=== PATIENT | female | born 2000 | race Caucasian/White ===

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

== ENCOUNTER 2020-01-14 17:21 | Emergency (ER) | payer SELFPAY ==
[2020-01-14] MEDS ORDERED: Zofran 4 MG/2 ML VIAL IV ONE (17:58)
[2020-01-14] MEDS ORDERED: Sodium Chloride 0.9% 1000 ML 1,000 ML IV STA (17:58)
[2020-01-14] MEDS ORDERED: SUBLIMAZE 100 MCG/2 ML IV ONE (17:58)
--- NOTE | 2020-01-14 18:03 | ERPHSYRPT ---
- History of Present Illness Historian: patient Exam Limitations: no limitations Patient Subjective Stated Complaint: abd pain Triage Nursing Assessment: pt to ED c/o bilat flank pain and lower abd pain bilat. pt states this has been "going on for a while now. I haven't ate in weeks." Pt states she did hold down small helping of beans todaty, but has been very nauseous. LMP 2 weeks ago and currenlty on period again. reports being sexually active but uses condoms. also reports hx frequent UTIs. Timing/Duration: day(s) (4-5 days) Quality: cramping Abdominal Pain Onset Location: RLQ, LLQ, suprapubic Pain Radiation: no radiation Severity of Pain-Max: moderate Severity of Pain-Current: moderate Modifying Factors: Improves With: nothing Associated Symptoms: fever/chills, fatigue, loss of appetite, nausea, vomiting, weakness Previous symptoms: same symptoms as today Hx Tetanus, Diphtheria Vaccination/Date Given: Yes Hx Influenza Vaccination/Date Given: Yes Hx Pneumococcal Vaccination/Date Given: No Immunizations Up to Date: Yes <JARVIS CRAIG - Last Filed: 01/14/20 18:40> <INDY DYE - Last Filed: 01/14/20 21:07> - History of Present Illness Time Seen by Provider: 01/14/20 17:59 Physician History: c/o lower abdominal pain for 5 days pt to ED c/o bilat flank pain and lower abd pain bilateral. pt states this has been "going on for a while now. I haven't ate in weeks." Pt states she did hold down small amount of food today, but has been very nauseous. LMP 2 weeks ago and currenlty on period again. reports being sexually active but uses condoms. also reports hx frequent UTIs. (JARVIS CRAIG) Allergies/Adverse Reactions: No Known Drug Allergies Allergy (Verified 01/14/20 17:45) Travel Risk - International Travel Have you traveled outside of the country in past 3 weeks: No - Coronavirus Screening Are you exhibiting any of the following symptoms?: No Close contact with a COVID-19 positive Pt in past 14-21 Days: No <JARVIS CRAIG - Last Filed: 01/14/20 18:40> - Review of Systems Constitutional: Fever, Chills, Malaise, Weakness Eyes: No Symptoms Ears, Nose, & Throat: No Symptoms Respiratory: No Cough, No Dyspnea Cardiac: No Chest Pain, No Edema, No Syncope Abdominal/Gastrointestinal: Abdominal Pain, Nausea, Vomiting, No Diarrhea, No Hematemesis, No Hematochezia Genitourinary Symptoms: Dysuria, Frequency, Urgency, Flank Pain, Vaginal Bleeding, No Hematuria, No Hesitancy, No Urinary Retention, No , No Vaginal Discharge Musculoskeletal: No Back Pain, No Neck Pain Skin: No Rash Neurological: No Dizziness, No Focal Weakness, No Sensory Changes Psychological: No Symptoms Endocrine: No Symptoms All Other Systems: Reviewed and Negative <KIARA,JARVIS - Last Filed: 01/14/20 18:40> - Past Medical History Pertinent Past Medical History: Yes Neurological History: No Pertinent History ENT History: No Pertinent History Cardiac History: No Pertinent History Respiratory History: No Pertinent History Endocrine Medical History: No Pertinent History Musculoskeletal History: No Pertinent History GI Medical History: No Pertinent History History: Other Psycho-Social History: No Pertinent History Female Reproductive Disorders: No Pertinent History Other Medical History: frequent pharyngitis. frequent UTI's - Past Surgical History Past Surgical History: No Neuro Surgical History: No Pertinent History Cardiac: No Pertinent History Respiratory: No Pertinent History Gastrointestinal: No Pertinent History Genitourinary: No Pertinent History Musculoskeletal: No Pertinent History Female Surgical History: No Pertinent History - Social History Smoking Status: Never smoker Exposure to second hand smoke: Yes Drug Use: none Patient Lives Alone: No - Female History Hx Last Menstrual Period: 12/27/19 Hx Now: No <KIARA,JARVIS - Last Filed: 01/14/20 18:40> - Physical Exam General Appearance: mild distress, alert Eye Exam: PERRL/EOMI, eyes nml inspection Ears, Nose, Throat Exam: normal ENT inspection, pharynx normal, moist mucous membranes Neck Exam: normal inspection, non-tender, supple, full range of motion Respiratory Exam: normal breath sounds, lungs clear, No respiratory distress Cardiovascular Exam: regular rate/rhythm, normal heart sounds Gastrointestinal/Abdomen Exam: soft, tenderness (LLQ), No mass Back Exam: normal inspection, normal range of motion, No CVA tenderness, No vertebral tenderness Extremity Exam: normal inspection, normal range of motion, pelvis stable Neurologic Exam: alert, oriented x 3, cooperative, normal mood/affect, nml cerebellar function, sensation nml, No motor deficits Skin Exam: normal color, warm, dry SpO2: 98 <JARVIS CRAIG - Last Filed: 01/14/20 18:40> - Physical Exam Gastrointestinal/Abdomen Exam: other (re-exam abd nontender without rebound or peritoneal signs ), No distention, No guarding, No pulsatile mass, No rebound, No hernia <INDY DYE - Last Filed: 01/14/20 21:07> - Nursing Vital Signs Nursing Vital Signs: Initial Vital Signs Temperature 99.9 F 01/14/20 17:34 Pulse Rate 98 H 01/14/20 17:34 Respiratory Rate 18 01/14/20 17:34 Blood Pressure 132/89 01/14/20 17:34 O2 Sat by Pulse Oximetry 98 01/14/20 17:34 Pain Scale Pain Intensity 5 - Course Nursing assessment & vital signs reviewed: Yes <JARVIS CRAIG - Last Filed: 01/14/20 18:40> - Course Nursing assessment & vital signs reviewed: Yes <HARDIKINDY KARINA - Last Filed: 01/14/20 21:07> Ordered Tests: Active Orders 24 hr Category Date Time Status PO Fluid Challenge STAT Care 01/14/20 19:13 Active AMYLASE Stat Lab 01/14/20 18:27 Completed CBC W DIFF Stat Lab 01/14/20 18:27 Completed CMP Stat Lab 01/14/20 18:27 Completed CULTURE,URINE Stat Lab 01/14/20 18:30 Received HCG QUALITATIVE,SERUM Stat Lab 01/14/20 18:27 Completed LIPASE Stat Lab 01/14/20 18:27 Completed Lactic Acid Stat Lab 01/14/20 17:58 Completed UA W/RFX UR CULTURE Stat Lab 01/14/20 18:30 Completed Medication Summary Discontinued Medications Generic Name Dose Route Start Last Admin Trade Name Charissa PRN Reason Stop Dose Admin Fentanyl Citrate 50 mcg 01/14/20 17:58 01/14/20 18:51 Sublimaze 100 Mcg/2 Ml IV 01/14/20 17:59 50 mcg STAT ONE Administration Fentanyl Citrate Confirm 01/14/20 18:50 Sublimaze 100 Mcg/2 Ml Administered 01/14/20 18:51 Dose 100 mcg .ROUTE .STK-MED ONE Sodium Chloride 1,000 mls @ 999 mls/hr 01/14/20 17:58 01/14/20 18:51 Sodium Chloride 0.9% 1000 Ml IV 01/14/20 18:58 999 mls/hr .Q1H1M STA Administration Sodium Chloride Confirm 01/14/20 18:50 Sodium Chloride 0.9% 1000 Ml Administered 01/14/20 18:51 Dose 1,000 mls @ ud .ROUTE .STK-MED ONE Ceftriaxone Sodium/Dextrose 1 g in 50 mls @ 100 mls/hr 01/14/20 19:25 01/14/20 20:03 Rocephin 1 Gm-D5w 50 Ml Bag IV 01/14/20 19:54 100 ml/hr STAT STA 100 mls/hr Administration Ceftriaxone Sodium/Dextrose Confirm 01/14/20 19:56 Rocephin 1 Gm-D5w 50 Ml Bag Administered 01/14/20 19:57 Dose 1 g in 50 mls @ ud IV .STK-MED ONE Ondansetron HCl 4 mg 01/14/20 17:58 01/14/20 18:51 Zofran 4 Mg/2 Ml Vial IV 01/14/20 17:59 4 mg STAT ONE Administration Ondansetron HCl Confirm 01/14/20 18:50 Zofran 4 Mg/2 Ml Vial Administered 01/14/20 18:51 Dose 4 mg .ROUTE .STK-MED ONE Lab/Rad Data: Laboratory Result Diagrams 01/14/20 18:27 01/14/20 18:27 Laboratory Results 01/14/20 01/14/20 01/14/20 Range/Units 18:30 18:27 18:27 WBC (4.0-10.5) K/mm3 RBC (4.1-5.4) M/mm3 Hgb (12.0-16.0) gm/dl Hct (35-47) % MCV (78-100) fl MCH (26-32) pg MCHC (32-36) g/dl RDW (11.5-14.0) % Plt Count (150-450) K/mm3 MPV (7.5-11.0) fl Gran % (36.0-66.0) % Eos # (Auto) (0-0.5) Absolute Lymphs (auto) (1.0-4.6) Absolute Monos (auto) (0.0-1.3) Lymphocytes % (24.0-44.0) % Monocytes % (0.0-12.0) % Eosinophils % (0.00-5.0) % Basophils % (0.0-0.4) % Absolute Granulocytes (1.4-6.9) Basophils # (0-0.4) Sodium 127 L (137-145) mmol/L Potassium 3.7 (3.5-5.1) mmol/L Chloride 88 L (98-107) mmol/L Carbon Dioxide 26 (22-30) mmol/L Anion Gap 17.5 H (5-15) MEQ/L BUN 19 H (7-17) mg/dL Creatinine 0.95 (0.52-1.04) mg/dL Estimated GFR > 60.0 ML/MIN Glucose 119 H (74-106) mg/dL Lactic Acid (0.4-2.0) Calcium 9.3 (8.4-10.2) mg/dL Total Bilirubin 1.50 H (0.2-1.3) mg/dL AST 24 (14-36) U/L ALT 16 (0-35) U/L Alkaline Phosphatase 88 (38-126) U/L Serum Total Protein 8.5 H (6.3-8.2) g/dL Albumin 4.5 (3.5-5.0) g/dL Amylase 66 (30-110) U/L Lipase 420 H (23-300) U/L Serum , Qual NEGATIVE (Negative) Urine Color YELLOW (YELLOW) Urine Appearance SLIGHTLY CLOUDY (CLEAR) Urine pH 6.0 (5-6) Ur Specific [place] 1.011 (1.005-1.025) Urine Protein 100 (Negative) Urine Ketones SMALL (NEGATIVE) Urine Blood MODERATE (0-5) Jerrell/ul Urine Nitrite NEGATIVE (NEGATIVE) Urine Bilirubin NEGATIVE (NEGATIVE) Urine Urobilinogen 4 (0-1) mg/dL Ur Leukocyte Esterase SMALL (NEGATIVE) Urine WBC (Auto) 11-15 (0-5) /HPF Urine RBC (Auto) 0-2 (0-2) /HPF U Epithel Cells (Auto) NONE (FEW) /HPF Urine Bacteria (Auto) RARE (NEGATIVE) /HPF Amorphous Crystals FEW (NEGATIVE) /HPF Urine Mucus (Auto) SLIGHT (NEGATIVE) /HPF Urine Culture Reflexed YES (NO) Urine Glucose NEGATIVE (NEGATIVE) mg/dL 01/14/20 01/14/20 Range/Units 18:27 17:58 WBC 15.2 H (4.0-10.5) K/mm3 RBC 4.39 (4.1-5.4) M/mm3 Hgb 13.1 (12.0-16.0) gm/dl Hct 38.1 (35-47) % MCV 86.8 (78-100) fl MCH 29.8 (26-32) pg MCHC 34.4 (32-36) g/dl RDW 13.4 (11.5-14.0) % Plt Count 183 (150-450) K/mm3 MPV 10.6 (7.5-11.0) fl Gran % 74.9 H (36.0-66.0) % Eos # (Auto) 0.01 (0-0.5) Absolute Lymphs (auto) 1.28 (1.0-4.6) Absolute Monos (auto) 2.50 H (0.0-1.3) Lymphocytes % 8.4 L (24.0-44.0) % Monocytes % 16.5 H (0.0-12.0) % Eosinophils % 0.1 (0.00-5.0) % Basophils % 0.1 (0.0-0.4) % Absolute Granulocytes 11.37 H (1.4-6.9) Basophils # 0.02 (0-0.4) Sodium (137-145) mmol/L Potassium (3.5-5.1) mmol/L Chloride (98-107) mmol/L Carbon Dioxide (22-30) mmol/L Anion Gap (5-15) MEQ/L BUN (7-17) mg/dL Creatinine (0.52-1.04) mg/dL Estimated GFR ML/MIN Glucose (74-106) mg/dL Lactic Acid 1.5 (0.4-2.0) Calcium (8.4-10.2) mg/dL Total Bilirubin (0.2-1.3) mg/dL AST (14-36) U/L ALT (0-35) U/L Alkaline Phosphatase (38-126) U/L Serum Total Protein (6.3-8.2) g/dL Albumin (3.5-5.0) g/dL Amylase (30-110) U/L Lipase (23-300) U/L Serum , Qual (Negative) Urine Color (YELLOW) Urine Appearance (CLEAR) Urine pH (5-6) Ur Specific [place] (1.005-1.025) Urine Protein (Negative) Urine Ketones (NEGATIVE) Urine Blood (0-5) Jerrell/ul Urine Nitrite (NEGATIVE) Urine Bilirubin (NEGATIVE) Urine Urobilinogen (0-1) mg/dL Ur Leukocyte Esterase (NEGATIVE) Urine WBC (Auto) (0-5) /HPF Urine RBC (Auto) (0-2) /HPF U Epithel Cells (Auto) (FEW) /HPF Urine Bacteria (Auto) (NEGATIVE) /HPF Amorphous Crystals (NEGATIVE) /HPF Urine Mucus (Auto) (NEGATIVE) /HPF Urine Culture Reflexed (NO) Urine Glucose (NEGATIVE) mg/dL - Progress Progress: improved Counseled pt/family regarding: lab results, diagnosis, need for follow-up <INDY DYE - Last Filed: 01/14/20 21:07> - Progress Progress Note: 01/14/20 18:54 pt received at change of shift from Dr. Craig after discussion of pending labs , Hx and intro to pt ; 01/14/20 19:10 pt now states pain better, nontender on re-exam without peritoneal signs. discussed with pt that could be early pancreatitis with slight elevation of Lipase and also risk of early appe and that could rule out more with CT ; after discussion of risk and benefits pt decides to decline CT at this time; She would like to try PO challenge and outpt tx with f/u PCP and treatment for UTI and return meantime if not improving. 01/14/20 19:26 no vag discharge per pt. 01/14/20 20:37 discussed with pt need for CT to fully eval pain and that more serious pathology may be evolving undetected ; she still wishes to decline and states these sympto ms are similar to prior episodes one yr ago - I explained that it could be something different and more serious , or that now it could be pancreatitis - she wants to try oral challenge to see if she could go home; 01/14/20 20:57 pt states that she understands but wishes to decline further w/u in ER or admit at this time and - this is after discussion of risks and benefits , including or complications and she has the capacity to make this choice. SHe is tolerating PO now - will continue tx for UTI and nausea and pt will return if not improving (INDY DYE) <JARVIS CRAIG - Last Filed: 01/14/20 18:40> - Departure Departure Disposition: Home Critical Care Time: No <LILIANA DYENETH KARINA - Last Filed: 01/14/20 21:07> - Departure Clinical Impression: UTI (urinary tract infection), early pancreatitis, Abdominal pain of unknown etiology Condition: Good Referrals: JARVIS CRAIG MD [Primary Care Provider] - Instructions: Acute Abdomen (Belly Pain), Adult (DC), Kidney Infection (DC), Urinary Tract Infections in Adults, Pancreatitis (DC), Kidney Stones (DC) Additional Instructions: We have not determined the exact cause for your stomach pain , but there may be any of the urinary tract, kidney stone or pancreatitis conditions, as well as other undetected conditions including appendicitis that are developing. SO it is important for you to return meantime if not improving and for you to see your Dr for furhter workup this week as well. Prescriptions: Ondansetron ODT 4 MG [Zofran Odt 4 mg] 4 mg PO Q6H PRN PRN #10 tab.rapdis PRN Reason: Nausea Cephalexin Mh 500 mg [Keflex 500 mg] 500 mg PO TID #30 capsule
[2020-01-14 18:30] LABS: Amourphous Crystal FEW /HPF (NEGATIVE); Appearance SLIGHTLY CLOUDY (CLEAR); Bacteria RARE /HPF (NEGATIVE); Bilirubin NEGATIVE (NEGATIVE); Blood MODERATE Ery/ul (0-5); Glucose NEGATIVE (NEGATIVE); Ketones SMALL (NEGATIVE); Leukocyte Esterase SMALL (NEGATIVE); Mucus SLIGHT /HPF (NEGATIVE); Nitrite NEGATIVE (NEGATIVE); Protein,Urine Dip 100 (Negative); RBC 0-2 /HPF (0-2); Specific Gravity 1.011 (1.005-1.025); Urobilinogen 4 mg/dL (0-1)
[2020-01-14 18:31] LABS: Absolute Neutrophil Ct (ANC) 11.37 (1.4-6.9); BASOPHIL % 0.1 % (0.0-0.4); Basophil (Absolute #) 0.02 (0-0.4); Eosinophil % 0.1 % (0.00-5.0); Eosinophil (Absolute #) 0.01 (0-0.5); Hematocrit 38.1 % (35-47); Hemoglobin 13.1 gm/dl (12.0-16.0); Lymphocyte (Absolute #) 1.28 (1.0-4.6); Lymphocytes % 8.4 % (24.0-44.0); Mean Cell Volume 86.8 fl (78-100); Mean Corpuscular Hemoglobin 29.8 pg (26-32); Mean Corpuscular Hgb Concent. 34.4 g/dl (32-36); Mean Platelet Volume 10.6 fl (7.5-11.0); Monocytes % 16.5 % (0.0-12.0); Neutrophil % 74.9 % (36.0-66.0); Platelet Count 183 K/mm3 (150-450); Red Blood Count 4.39 M/mm3 (4.1-5.4); Red Cell Distribution Width 13.4 % (11.5-14.0); White Blood Count 15.2 K/mm3 (4.0-10.5)
[2020-01-14 18:45] LABS: ALBUMIN 4.5 g/dL (3.5-5.0); ALKALINE PHOSPHATASE 88 U/L (38-126); AMYLASE 66 U/L (30-110); ANION GAP 17.5 MEQ/L (5-15); BLOOD UREA NITROGEN 19 mg/dL (7-17); CHLORIDE 88 mmol/L (98-107); Calcium 9.3 mg/dL (8.4-10.2); Carbon Dioxide 26 mmol/L (22-30); Creatinine 1 0.95 mg/dL (0.52-1.04); Glucose 119 mg/dL (74-106); LIPASE 420 U/L (23-300); Potassium 3.7 mmol/L (3.5-5.1); SGOT/AST 24 U/L (14-36); SGPT/ALT 16 U/L (0-35); SODIUM 127 mmol/L (137-145); Total Protein 8.5 g/dL (6.3-8.2)
[2020-01-14] MEDS ORDERED: Zofran 4 MG/2 ML VIAL ONE (18:50)
[2020-01-14] MEDS ORDERED: SUBLIMAZE 100 MCG/2 ML ONE (18:50)
[2020-01-14] MEDS ORDERED: Sodium Chloride 0.9% 1000 ML 1,000 ML ONE (18:50)
[2020-01-14] MEDS ORDERED: ROCEPHIN 1 Gm-D5w 50 ml Bag** 1 G/50 ML IVPB IV STA (19:25)
[2020-01-14] MEDS ORDERED: ROCEPHIN 1 Gm-D5w 50 ml Bag** 1 G/50 ML IVPB IV ONE (19:56)
[2020-01-14 21:37] VITALS: BP 118/72; PULSE 84; O2SAT 99
== END 2020-01-14 21:36 | disposition home or self-care (01) ==
LOC: ED 17:21
DX: N39.0 Urinary tract infection, site not specified (principal); K85.90 Acute pancreatitis without necrosis or infection, unspecified; R10.9 Unspecified abdominal pain
CPT/HCPCS: 36415; 80053; 81001; 81025; 82150; 83605; 83690; 85025; 87077; 87086; 87186; 96360; 96365; 96374; 96375; 99284; J0696; J2405; J3010

== ENCOUNTER 2021-04-30 22:46 | Emergency (ER) | payer SELFPAY ==
[2021-04-30] MEDS ORDERED: XYLOCAINE 1% HCL 20 ML MDV IJ ONE (22:47)
--- NOTE | 2021-04-30 22:51 | ERPHSYRPT ---
- History of Present Illness Time Seen by Provider: 04/30/21 22:51 Source: patient Exam Limitations: no limitations Physician History: This is a 20-year-old white female patient of Dr. Craig and presents with right upper tooth and gumline infection. Patient states it has been there for approximately 2 weeks. Just over 2 weeks ago she ordered a weeks worth of amoxicillin antibiotic on line. She took that medication. Approximately 2 days ago there was an abscess present and it ruptured and her symptoms improved but she is concerned about systemic infection. Patient denies nausea vomiting. Patient denies fever. Patient also pointed out that she has right lateral rib pain. Timing/Duration: gradual onset Severity: mild ENT Location: dental Prearrival Treatment: no prearrival treatment Modifying Factors: Improves With: activity Associated Symptoms: tooth pain (Right upper molar region) Allergies/Adverse Reactions: No Known Drug Allergies Allergy (Verified 01/14/20 17:45) Hx Tetanus, Diphtheria Vaccination/Date Given: Yes Hx Influenza Vaccination/Date Given: Yes Hx Pneumococcal Vaccination/Date Given: No Travel Risk - International Travel Have you traveled outside of the country in past 3 weeks: No - Coronavirus Screening Are you exhibiting any of the following symptoms?: No Close contact with a COVID-19 positive Pt in past 14-21 Days: No - Review of Systems Constitutional: No Symptoms Eyes: No Symptoms Ears, Nose, & Throat: Other (Dental pain and gingival pain) Respiratory: No Symptoms Cardiac: No Symptoms Abdominal/Gastrointestinal: No Symptoms Genitourinary Symptoms: No Symptoms Musculoskeletal: No Symptoms Skin: No Symptoms Neurological: No Symptoms Psychological: No Symptoms Endocrine: No Symptoms Hematologic/Lymphatic: No Symptoms Immunological/Allergic: No Symptoms All Other Systems: Reviewed and Negative - Past Medical History Pertinent Past Medical History: Yes Neurological History: No Pertinent History ENT History: No Pertinent History Cardiac History: No Pertinent History Respiratory History: No Pertinent History Endocrine Medical History: No Pertinent History Musculoskeletal History: No Pertinent History GI Medical History: No Pertinent History History: Other Psycho-Social History: No Pertinent History Female Reproductive Disorders: No Pertinent History Other Medical History: frequent pharyngitis. frequent UTI's - Past Surgical History Past Surgical History: No Neuro Surgical History: No Pertinent History Cardiac: No Pertinent History Respiratory: No Pertinent History Gastrointestinal: No Pertinent History Genitourinary: No Pertinent History Musculoskeletal: No Pertinent History Female Surgical History: No Pertinent History - Social History Smoking Status: Never smoker Exposure to second hand smoke: Yes Drug Use: none Patient Lives Alone: No - Nursing Vital Signs Nursing Vital Signs: Initial Vital Signs Temperature 98.1 F 04/30/21 23:47 Pulse Rate 52 L 04/30/21 23:47 Respiratory Rate 16 04/30/21 23:47 Blood Pressure 160/49 04/30/21 23:47 O2 Sat by Pulse Oximetry 100 04/30/21 23:47 Pain Scale Pain Intensity 0 - Physical Exam General Appearance: no apparent distress, alert, anxiety, thin Eye Exam: bilateral eye: normal inspection, PERRL, EOMI Ear Exam: bilateral ear: auricle normal Nasal Exam: normal inspection Throat Exam: dental tenderness (Right upper molars. 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, normal mood/affect, nml cerebellar function, nml station & gait, sensation nml Skin Exam: normal color, warm, dry SpO2 Interpretation: normal O2 Delivery: Room Air - Course Nursing assessment & vital signs reviewed: Yes Ordered Tests: Medication Summary Discontinued Medications Generic Name Dose Route Start Last Admin Trade Name Freq PRN Reason Stop Dose Admin Ceftriaxone Sodium 1,000 mg 05/01/21 00:30 Ceftriaxone Sodium 1000 Mg Inj Vial IM 05/01/21 00:31 STAT ONE - Progress Progress: unchanged Counseled pt/family regarding: diagnosis, need for follow-up - Departure Departure Disposition: Home Clinical Impression: Blister of gum with infection, Dental infection Condition: Stable Critical Care Time: No Referrals: JARVIS CRAIG MD [Primary Care Provider] - Follow up/PCP as directed Additional Instructions: Use Tylenol and ibuprofen for pain control. Call dentist tomorrow to make arrange for follow-up appointment. If you cannot obtain a dental appointment, call your primary care physician for further management Prescriptions: Azithromycin 250 mg [Zithromax 250 MG TABLET] 250 mg PO ZPACK #6 tablet
[2021-05-01 00:25] VITALS: O2SAT 100
[2021-05-01 00:28] VITALS: BP 141/62; PULSE 55
[2021-05-01] MEDS ORDERED: Rocephin 1000 MG INJ ONE (00:34)
[2021-05-01] MEDS: Rocephin 1000 MG INJ IM ONE (00:37)
== END 2021-05-01 00:54 | disposition home or self-care (01) ==
LOC: ED 22:46
DX: K04.7 Periapical abscess without sinus (principal); S00.522A Blister (nonthermal) of oral cavity, initial encounter
CPT/HCPCS: 96372; 99283; J0696